=== PATIENT | female | born 1980 | race Caucasian/White ===

== ENCOUNTER 2017-06-07 21:55 | Emergency (ER) | payer BC, OTHER ==
[~2017-06-07] VITALS: Ht 165.1 cm; Wt 61.0 kg
[2017-06-07 23:04] LABS: HEMATOCRIT 41.6 % (34.6-47.8); HEMOGLOBIN 14.1 g/dL (11.7-16.4); WHITE BLOOD COUNT 7.8 x10^3/uL (3.4-10)
[2017-06-07 23:15] LABS: ASPARTATE AMINO TRANSFERASE 14 U/L (15-37); BLOOD UREA NITROGEN 8 mg/dL (7-18)
[2017-06-07] MEDS ORDERED: ACYC-57 PO (23:36)
[2017-06-07 23:49] LABS: HCG UR OBC PASS
[2017-06-08 00:21] VITALS: BP 128/74
== END 2017-06-08 00:54 | disposition home or self-care (01) ==
LOC: ED 23:59
DX: R10.9 Unspecified abdominal pain (principal); R11.10 Vomiting, unspecified; R19.7 Diarrhea, unspecified
CPT/HCPCS: 36415; 80053; 81001; 81025; 83690; 85025; 87086; 99284